=== PATIENT | female | born 1975 | race Caucasian/White ===

== ENCOUNTER 2017-09-21 09:18 | Outpatient (CLI) | payer OTHER | END 2017-09-21 09:43 | disposition home or self-care (01) | LOC: MAMO-SONO 09:18 | DX: N63.11 Unspecified lump in the right breast, upper outer quadrant (principal); N60.11 Diffuse cystic mastopathy of right breast; Z12.31 Encounter for screening mammogram for malignant neoplasm of breast; M25.9 Joint disorder, unspecified ==

== ENCOUNTER 2022-01-06 11:18 | Emergency (ER) | payer OTHER ==
[~2022-01-06] VITALS: Ht 165.1 cm; Wt 73.0 kg
[2022-01-06] MEDS ORDERED: LITHIUM CARBON300 M1 PO (11:30)
[2022-01-06] MEDS ORDERED: BUPROPION XL450 MG PO (11:31)
[2022-01-06] MEDS ORDERED: ADDERALL 20 MG20 MG PO (11:32)
[2022-01-06] MEDS ORDERED: RESTORIL30 M1 PO (11:33)
== END 2022-01-06 14:39 | disposition home or self-care (01) ==
LOC: ER 11:18
DX: S20.219A Contusion of unspecified front wall of thorax, initial encounter (principal); S00.33XA Contusion of nose, initial encounter; V49.9XXA Car occupant (driver) (passenger) injured in unspecified traffic accident, initial encounter; Y93.9 Activity, unspecified; Y92.413 State road as the place of occurrence of the external cause; Y99.9 Unspecified external cause status